=== PATIENT | male | born 1990 | race Caucasian/White ===

== ENCOUNTER 2021-01-28 18:32 | Emergency (ER) | payer SELFPAY ==
[2021-01-28] MEDS ORDERED: DOXYCYCLINE 100 MG CAP PO ONE (19:06)
[2021-01-28] MEDS ORDERED: HYDROCODONE/APAP 10/325 TAB ONE (19:06)
[2021-01-28] MEDS ORDERED: TETANUS & DIPHTHERIA TOX,ADULT 0.5 ML VIAL ONE (19:06)
[2021-01-28] MEDS ORDERED: LIDOCAINE 1% MPF 30 ML VIAL ONE (19:06)
--- NOTE | 2021-01-28 19:13 | RAD REPORT ---
EXAM DESCRIPTION: RAD - Foot Left 3 View - 01/28/2021 6:56 pm CLINICAL HISTORY: Left Foot pain status post injury FINDINGS: No fracture or dislocation is seen. A fish hook is present within the plantar soft tissues
--- NOTE | 2021-01-28 19:37 | ER ---
Nurse's Notes [facility] Name: Michael Odom Age: 30 yrs Sex: Male : 1990 Arrival Date: 01/28/2021 Time: 18:34 Bed 7 Private MD: Diagnosis: Puncture wound with foreign body of foot Presentation: 01/28 18:40 Chief complaint: Patient states: was swimming in the ocean and felt something on the em left foot, fish hook noted to the lateral side of the left foot, tetanus is not UTD. Coronavirus screen: Client denies travel out of the [place] in the last 14 days. Ebola Screen: Patient negative for fever greater than or equal to 101.5 degrees Fahrenheit, and additional compatible Ebola Virus Disease symptoms Patient denies exposure to infectious person. Patient denies travel to an Ebola-affected area in the 21 days before illness onset. No symptoms or risks identified at this time. Initial Sepsis Screen: Does the patient meet any 2 criteria? HR > 90 bpm. No. Patient's initial sepsis screen is negative. Does the patient have a suspected source of infection? No. Patient's initial sepsis screen is negative. Risk Assessment: Do you want to hurt yourself or someone else? Patient reports no desire to harm self or others. Onset of symptoms was January 28, 2021. 18:40 Method Of Arrival: Wheelchair em 18:40 Acuity: WILBER 4 em Historical: - Allergies: 18:43 No Known Allergies; em - Home Meds: 18:43 None [Active]; em - PMHx: 18:43 None; em - PSHx: 18:43 Cholecystectomy; em - Immunization history:: Last tetanus immunization: unknown. - Social history:: Smoking status: Patient denies any tobacco usage or history of. Screenin:58 Abuse screen: Denies threats or abuse. Denies injuries from another. Nutritional jl7 screening: No deficits noted. Tuberculosis screening: No symptoms or risk factors identified. Fall Risk None identified. Assessment: 18:58 General: Appears in no apparent distress. uncomfortable, Behavior is calm, cooperative, jl7 appropriate for age. Pain: Complains of pain in lateral side of left foot Pain currently is 7 out of 10 on a pain scale. Neuro: Level of Consciousness is awake, alert, obeys commands, Oriented to person, place, time, situation. Cardiovascular: Patient's skin is warm and dry. Respiratory: Airway is patent Respiratory effort is even, unlabored, Respiratory pattern is regular, symmetrical. Derm: Skin is pink, warm \T\ dry. 19:55 Reassessment: Patient and/or family updated on plan of care and expected duration. Pain ea level reassessed. Patient is alert, oriented x 3, equal unlabored respirations, skin warm/dry/pink. Discharge instruction given to patient verbalized the understanding of instruction. Vital Signs: 18:40 BP 139 / 77; Pulse 126; Resp 20; Temp 98.4(O); Pulse Ox 99% on R/A; Weight 65.77 kg; em Height 5 ft. 4 in. (162.56 cm); Pain 7/10; 19:55 BP 120 / 78; Pulse 88; Resp 18; Pulse Ox 98% ; ea 18:40 Body Mass Index 24.89 (65.77 kg, 162.56 cm) em ED Course: 18:34 Patient arrived in ED. mr 18:38 Cleopatra Astudillo FNP-C is PHCP. kb 18:38 Rustam Fajardo MD is Attending Physician. kb 18:42 Triage completed. em 18:43 Arm band placed on. em 18:44 Jen Ponce RN is Primary Nurse. jl7 18:56 Foot Left 3 View XRAY In Process Unspecified. EDMS 18:58 Patient has correct armband on for positive identification. Bed in low position. Call jl7 light in reach. Side rails up X 1. Pulse ox on. NIBP on. 19:14 Primary Nurse role handed off by Jen Ponce, RN mw2 19:59 No provider procedures requiring assistance completed. Patient did not have IV access ea during this emergency room visit. Administered Medications: 18:50 Drug: [place] (HYDROcodone-acetaminophen) 10 mg-325 mg 1 tabs Route: PO; jl7 19:09 Follow up: Response: No adverse reaction ea 18:56 Drug: Tetanus-Diphtheria Toxoid Adult 0.5 ml {Physician Scribe: [employer]. Exp: jl7 02/08/2022. Lot #: [id number]. } Route: IM; Site: right deltoid; 19:09 Follow up: Response: No adverse reaction ea 18:57 Drug: Lidocaine (1 %) 1 vials {Note: administered by NP. Cleopatra} Volume: 20 ml; jl7 Route: Infiltration; 19:08 Drug: Doxycycline 100 mg Route: PO; ea Outcome: 19:36 Discharge ordered by . trixie 19:59 Discharged to home via wheelchair, with family. ea 19:59 Condition: stable 19:59 Discharge instructions given to patient, Instructed on discharge instructions, follow up and referral plans. medication usage, Demonstrated understanding of instructions, follow-up care, medications, Prescriptions given X 2. 20:05 Patient left the ED. ea Signatures: Dispatcher [employer] EDNJ Cleopatra Astudillo, ASSET LIABILITY ANALYST-C ASSET LIABILITY ANALYST-Ckb Lindsey Izaguirre Edgar, RN RN Jen Valencia RN RN jl7 Antunez, Elena, RN Jonn Rocha ea mw2
--- NOTE | 2021-01-28 19:38 | EDPHYS ---
Physician Documentation [facility] Name: Michael Odom Age: 30 yrs Sex: Male : 1990 Arrival Date: 01/28/2021 Time: 18:34 Bed 7 Private MD: ED Physician Rustam Fajardo HPI: 01/28 20:46 This 30 yrs old Male presents to ER via Wheelchair with complaints of Hook in kb Foot. 20:46 The patient or guardian reports the patient has a suspected foreign body, of the kb lateral left foot. The reported likely foreign body is a fishhook. Onset: The symptoms/episode began/occurred just prior to arrival. Current symptoms: foreign body sensation, pain, in the area of the foreign body. Treatment Prior to Arrival: none. The patient has not experienced similar symptoms in the past. The patient has not recently seen a physician. Pt reports he [place] the [place] and a hook went into his foot. . Historical: - Allergies: 18:43 No Known Allergies; em - Home Meds: 18:43 None [Active]; em - PMHx: 18:43 None; em - PSHx: 18:43 Cholecystectomy; em - Immunization history:: Last tetanus immunization: unknown. - Social history:: Smoking status: Patient denies any tobacco usage or history of. ROS: 20:45 Constitutional: Negative for fever, chills, and weight loss. kb 20:45 Skin: Positive for puncture, of the lateral side of left foot. 20:45 All other systems are negative. Exam: 20:46 Constitutional: This is a well developed, well nourished patient who is awake, alert, kb and in no acute distress. 20:46 Skin: injury, puncture(s), that are superficial, of the lateral side of left foot, with hook. Vital Signs: 18:40 BP 139 / 77; Pulse 126; Resp 20; Temp 98.4(O); Pulse Ox 99% on R/A; Weight 65.77 kg; em Height 5 ft. 4 in. (162.56 cm); Pain 7/10; 19:55 BP 120 / 78; Pulse 88; Resp 18; Pulse Ox 98% ; ea 18:40 Body Mass Index 24.89 (65.77 kg, 162.56 cm) em Procedures: 20:44 Foreign Body Removal: a fishhook, from the lateral side of left foot, by using a kb hemostat, The patient tolerated the removal well, 7ml of 1% lidocaine injected around hook before removal. MDM: 18:40 Patient medically screened. kb 20:43 Data reviewed: vital signs, nurses notes. Data interpreted: Pulse oximetry: on room air kb is 98 %. Interpretation: normal. Counseling: I had a detailed discussion with the patient and/or guardian regarding: the historical points, exam findings, and any diagnostic results supporting the discharge/admit diagnosis, radiology results, the need for outpatient follow up, a family practitioner, to return to the emergency department if symptoms worsen or persist or if there are any questions or concerns that arise at home. 01/28 18:40 Order name: Foot Left 3 View XRAY; Complete Time: 19:25 kb Administered Medications: 18:50 Drug: [place] (HYDROcodone-acetaminophen) 10 mg-325 mg 1 tabs Route: PO; jl7 19:09 Follow up: Response: No adverse reaction ea 18:56 Drug: Tetanus-Diphtheria Toxoid Adult 0.5 ml {Skidder Operator: [employer]. Exp: jl7 02/08/2022. Lot #: [id number]. } Route: IM; Site: right deltoid; 19:09 Follow up: Response: No adverse reaction ea 18:57 Drug: Lidocaine (1 %) 1 vials {Note: administered by DAWNA Whelan.} Volume: 20 ml; jl7 Route: Infiltration; 19:08 Drug: Doxycycline 100 mg Route: PO; ea Disposition: 01/29 08:38 Co-signature as Attending Physician, Rustam Fajardo MD I agree with the assessment and kdr plan of care. Disposition: 01/28/21 19:36 Discharged to Home. Impression: Puncture wound with foreign body of foot. - Condition is Stable. - Discharge Instructions: Puncture Wound, [id number]. - Prescriptions for Tylenol- Codeine #3 300-30 mg Oral Tablet - take 1 tablet by ORAL route every 4-6 hours As needed; 10 tablet. Doxycycline Hyclate 100 mg Oral Tablet - take 1 tablet by ORAL route every 12 hours for 7 days; 14 tablet. - Medication Reconciliation Form, Thank You Letter, Antibiotic Education, Prescription Opioid Use form. - Follow up: Emergency Department; When: As needed; Reason: Worsening of condition. Follow up: Private Physician; When: 2 - 3 days; Reason: Recheck today's complaints, Continuance of care, Re-evaluation by your physician. Signatures: Dispatcher [employer] Cleopatra Kleni, BUNDLE WRAPPER-C BUNDLE WRAPPER-Rustam Priest MD MD kdr Munoz, Edgar, RN RN Jen Valencia RN RN jl7 Ginna Snow RN RN ea Corrections: (The following items were deleted from the chart) 01/28 20:05 19:36 01/28/2021 19:36 Discharged to Home. Impression: Puncture wound with foreign body ea of foot. Condition is Stable. Forms are Medication Reconciliation Form, Thank You Letter, Antibiotic Education, Prescription Opioid Use. Follow up: Emergency Department; When: As needed; Reason: Worsening of condition. Follow up: Private Physician; When: 2 - 3 days; Reason: Recheck today's complaints, Continuance of care, Re-evaluation by your physician. kb
[2021-01-28 21:46] VITALS: TEMP 98.4
[2021-01-28 21:48] VITALS: BP 120/78; O2SAT 98
== END 2021-01-28 20:05 | disposition home or self-care (01) ==
LOC: ER 18:32
DX: S91.342A Puncture wound with foreign body, left foot, initial encounter (principal); W26.8XXA Contact with other sharp object(s), not elsewhere classified, initial encounter; W45.8XXA Other foreign body or object entering through skin, initial encounter; Z23 Encounter for immunization
CPT/HCPCS: 90471; 90714; 99284

== ENCOUNTER 2021-03-31 22:07 | Emergency (ER) | payer SELFPAY ==
[2021-03-31 23:17] LABS: Absolute Lymphocytes (CBC) 2.3 K/uL (0.7-4.9); Basophils % 0.5 % (0-1.3); Hematocrit 37.9 % (39.6-49.0); Lymphocytes % 30.7 % (15.3-44.8); MPV 7.6 fL (7.6-11.3); RBC Red Blood Cell Count 4.01 M/uL (4.33-5.43)
[2021-03-31 23:18] LABS: Protime INR 1.03
[2021-03-31 23:34] LABS: ALT/SGPT 40 U/L (12-78); AST/SGOT 37 U/L (15-37); Albumin 4.3 g/dL (3.4-5.0); Alkaline Phosphatase 45 U/L (45-117); BUN Blood Urea Nitrogen 12 mg/dL (7-18); Bicarbonate 28 mmol/L (21-32); Bilirubin Direct < 0.1 mg/dL (0-0.2); Bilirubin Total 0.4 mg/dL (0.2-1.0); Glucose Level 83 mg/dL (74-106); Magnesium 2.2 mg/dL (1.8-2.4); NT PRO-BNP 16 pg/mL (<125); Potassium 3.7 mmol/L (3.5-5.1); Protein, Total 7.8 g/dL (6.4-8.2); Sodium Level 140 mmol/L (136-145); Troponin (Emerg Dept Use Only) < 0.02 ng/mL (0.0-0.045)
--- NOTE | 2021-04-01 | EDPHYS ---
Physician Documentation [facility] Name: Michael Odom Age: 30 yrs Sex: Male : 1990 Arrival Date: 03/31/2021 Time: 22:09 Bed 28 Private MD: ED Physician Mathew Springer HPI: 03/31 23:30 This 30 yrs old Male presents to ER via Ambulatory with complaints of Chest ma2 Pain, Doesn't Feel Right. 23:30 The patient or guardian reports chest pain that is located primarily in the anterior ma2 chest wall, chest diffusely, anterior aspect of right upper chest and anterior aspect of left upper chest. Associated signs and symptoms: Pertinent negatives: diaphoresis, lower extremity pain, lightheadedness, near syncope. Severity of pain: At its worst the pain was mild in the emergency department the pain is unchanged. The patient has experienced similar episodes in the past. Yesterday 30-year-old male who smokes cigarettes, and smokes marijuana here with chest wall pain that is worse with deep breath and coughing, started last night and has been constant worse with palpation or moving, he has had this chest pain many times, and had negative work-up done with times in the past, he does not have any health issues other than chronic chest pain. He stated that chest pain started after he smoked marijuana last night.. Historical: - Allergies: 22:44 No Known Allergies; kg - Home Meds: 22:44 None [Active]; kg - PMHx: 22:44 None; kg - PSHx: 22:44 None; kg - Immunization history:: Adult Immunizations not up to date, Client reports having NOT received the Covid vaccine. - Social history:: Smoking status: Patient reports the use of cigarette tobacco products, smokes one pack cigarettes per day. Patient uses alcohol, on a daily basis. street drugs, marijuana. - Family history:: not pertinent. ROS: 23:30 Constitutional: Negative for fever, chills, and weight loss. ma2 23:30 All other systems are negative. Exam: 23:30 Constitutional: This is a well developed, well nourished patient who is awake, alert, ma2 and in no acute distress. Head/Face: Normocephalic, atraumatic. Eyes: Pupils equal round and reactive to light, extra-ocular motions intact. Lids and lashes normal. Conjunctiva and sclera are non-icteric and not injected. Cornea within normal limits. Periorbital areas with no swelling, redness, or edema. ENT: Nares patent. No nasal discharge, no septal abnormalities noted. Tympanic membranes are normal and external auditory canals are clear. Oropharynx with no redness, swelling, or masses, exudates, or evidence of obstruction, uvula midline. Mucous membranes moist. Neck: Trachea midline, no thyromegaly or masses palpated, and no cervical lymphadenopathy. Supple, full range of motion without nuchal rigidity, or vertebral point tenderness. No Meningismus. Chest/axilla: Chest pain is reproducible on exam, diffuse lower anterior chest, skin is within normal limits normal chest wall appearance and motion. v. No lesions are appreciated. Cardiovascular: Regular rate and rhythm with a normal S1 and S2. No gallops, murmurs, or rubs. Normal PMI, no JVD. No pulse deficits. Respiratory: Lungs have equal breath sounds bilaterally, clear to auscultation and percussion. No rales, rhonchi or wheezes noted. No increased work of breathing, no retractions or nasal flaring. Abdomen/GI: Soft, non-tender, with normal bowel sounds. No distension or tympany. No guarding or rebound. No evidence of tenderness throughout. Skin: Warm, dry with normal turgor. Normal color with no rashes, no lesions, and no evidence of cellulitis. MS/ Extremity: Pulses equal, no cyanosis. Neurovascular intact. Full, normal range of motion. Neuro: Awake and alert, GCS 15, oriented to person, place, time, and situation. Cranial nerves II-XII grossly intact. Motor strength 5/5 in all extremities. Sensory grossly intact. Cerebellar exam normal. Normal gait. 23:30 Chest/axilla: Normal chest wall appearance and motion. Nontender with no deformity. ma2 No lesions are appreciated. Vital Signs: 22:40 BP 139 / 76; Pulse 101; Resp 20; Temp 98.6; Pulse Ox 100% on R/A; Weight 67.77 kg (M); kg Height 5 ft. 5 in. (165.10 cm); Pain 4/10; 04/01 00:16 BP 123 / 78; Pulse 77; Resp 16; Temp 98.6; Pulse Ox 100% ; Pain 4/10; bs2 03/31 22:40 Body Mass Index 24.86 (67.77 kg, 165.10 cm) kg MDM: 03/31 22:58 Patient medically screened. [facility] 23:30 Differential diagnosis: esophagitis, gastritis, gastroesophageal reflux disease (GERD), ma2 pericarditis. 23:58 Data reviewed: vital signs, nurses notes. Counseling: I had a detailed discussion with [facility] the patient and/or guardian regarding: the historical points, exam findings, and any diagnostic results supporting the discharge/admit diagnosis, the presence of at least one elevated blood pressure reading (>120/80) during this emergency department visit, the need for outpatient follow up. ED course: Work-up is unremarkable, negative troponin, chest wall pain has been constant for 2 days, reproducible on exam, MARK score and heart score are not applicable. I offered pain medication in the ER and prescription however patient declined. 03/31 22:38 Order name: Basic Metabolic Panel [facility] 03/31 22:38 Order name: CBC with Diff [facility] 03/31 22:38 Order name: LFT's [facility] 03/31 22:38 Order name: Magnesium [facility] 03/31 22:38 Order name: NT PRO-BNP; Complete Time: 23:41 [facility] 03/31 22:38 Order name: PT-INR; Complete Time: 23:32 [facility] 03/31 22:38 Order name: Troponin (emerg Dept Use Only); Complete Time: 23:41 [facility] 03/31 22:38 Order name: XRAY Chest (1 view) [facility] 03/31 22:38 Order name: EKG; Complete Time: 22:39 [facility] 03/31 22:39 Order name: Basic Metabolic Panel; Complete Time: 23:41 [facility] 03/31 22:39 Order name: CBC with Automated Diff; Complete Time: 23:32 [facility] 03/31 22:39 Order name: Liver (Hepatic) Function; Complete Time: 23:41 [facility] 03/31 22:39 Order name: Magnesium; Complete Time: 23:41 [facility] 03/31 22:38 Order name: Cardiac monitoring; Complete Time: 23:12 [facility] 03/31 22:38 Order name: EKG - Nurse/Tech; Complete Time: 22:46 [facility] 03/31 22:38 Order name: IV Saline Lock; Complete Time: 23:13 wv2 03/31 22:38 Order name: Labs collected and sent; Complete Time: 23:13 w[facility]2 03/31 22:38 Order name: O2 Per Protocol; Complete Time: 23:13 wv2 03/31 22:38 Order name: O2 Sat Monitoring; Complete Time: 23:13 ma2 Administered Medications: 04/01 00:15 Drug: Ketorolac 30 mg Route: IVP; Site: left antecubital; bs2 00:15 Follow up: Response: No adverse reaction bs2 Disposition Summary: 03/31/21 23:59 Discharge Ordered Location: Home ma2 Condition: Stable ma2 Diagnosis - Chest pain on breathing ma2 Followup: ma2 - With: Private Physician - When: Tomorrow - Reason: Continuance of care Discharge Instructions: - Discharge Summary Sheet ma2 - Nonspecific Chest Pain, Adult, [id number] ma2 Forms: - Medication Reconciliation Form ma2 - Thank You Letter ma2 - Antibiotic Education ma2 - Prescription Opioid Use ma2 Signatures: Dispatcher [employer] EDMS Mathew Springer MD MD ma2 Loree Conley RN RN kg Flora Franks RN RN bs2 Corrections: (The following items were deleted from the chart) 03/31 23:32 23:30 Constitutional: This is a well developed, well nourished patient who is awake, ma2 alert, and in no acute distress. Head/Face: Normocephalic, atraumatic. Eyes: Pupils equal round and reactive to light, extra-ocular motions intact. Lids and lashes normal. Conjunctiva and sclera are non-icteric and not injected. Cornea within normal limits. Periorbital areas with no swelling, redness, or edema. ENT: Nares patent. No nasal discharge, no septal abnormalities noted. Tympanic membranes are normal and external auditory canals are clear. Oropharynx with no redness, swelling, or masses, exudates, or evidence of obstruction, uvula midline. Mucous membranes moist. Neck: Trachea midline, no thyromegaly or masses palpated, and no cervical lymphadenopathy. Supple, full range of motion without nuchal rigidity, or vertebral point tenderness. No Meningismus. Chest/axilla: Normal chest wall appearance and motion. Nontender with no deformity. No lesions are appreciated. Cardiovascular: Regular rate and rhythm with a normal S1 and S2. No gallops, murmurs, or rubs. Normal PMI, no JVD. No pulse deficits. Respiratory: Lungs have equal breath sounds bilaterally, clear to auscultation and percussion. No rales, rhonchi or wheezes noted. No increased work of breathing, no retractions or nasal flaring. Abdomen/GI: Soft, non-tender, with normal bowel sounds. No distension or tympany. No guarding or rebound. No evidence of tenderness throughout. Skin: Warm, dry with normal turgor. Normal color with no rashes, no lesions, and no evidence of cellulitis. MS/ Extremity: Pulses equal, no cyanosis. Neurovascular intact. Full, normal range of motion. Neuro: Awake and alert, GCS 15, oriented to person, place, time, and situation. Cranial nerves II-XII grossly intact. Motor strength 5/5 in all extremities. Sensory grossly intact. Cerebellar exam normal. Normal gait. ma2
--- NOTE | 2021-04-01 | ER ---
Nurse's Notes [facility] Name: Michael Odom Age: 30 yrs Sex: Male : 1990 Arrival Date: 03/31/2021 Time: 22:09 Bed 28 Private MD: Diagnosis: Chest pain on breathing Presentation: 03/31 22:40 Chief complaint: Patient states: Chest pressure starting at 2000. Pt just got done kg eating and started having chest pressure and tingling in arms larisa. 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 Pt also stated he smoked weed and had one beer three hours before the episode. Coronavirus screen: Client denies travel out of the [place] in the last 14 days. At this time, unable to obtain information related to travel outside the [place] At this time, the client does not indicate any symptoms associated with coronavirus-19. Ebola Screen: Patient negative for fever greater than or equal to 101.5 degrees Fahrenheit, and additional compatible Ebola Virus Disease symptoms Patient denies exposure to infectious person. Patient denies travel to an Ebola-affected area in the 21 days before illness onset. Initial Sepsis Screen: Does the patient meet any 2 criteria? No. Patient's initial sepsis screen is negative. Does the patient have a suspected source of infection? No. Patient's initial sepsis screen is negative. Risk Assessment: Do you want to hurt yourself or someone else? Patient reports no desire to harm self or others. Onset of symptoms was March 31, 2021 at 20:00. 22:40 Method Of Arrival: Ambulatory kg 22:40 Acuity: WILBER 3 kg Triage Assessment: 22:44 General: Appears in no apparent distress. Behavior is calm, cooperative, appropriate kg for age, quiet. Pain: Complains of pain in chest. EENT: No deficits noted. Neuro: No deficits noted. Cardiovascular: Reports chest pain, tingling BUE. Historical: - Allergies: 22:44 No Known Allergies; kg - Home Meds: 22:44 None [Active]; kg - PMHx: 22:44 None; kg - PSHx: 22:44 None; kg - Immunization history:: Adult Immunizations not up to date, Client reports having NOT received the Covid vaccine. - Social history:: Smoking status: Patient reports the use of cigarette tobacco products, smokes one pack cigarettes per day. Patient uses alcohol, on a daily basis. street drugs, marijuana. - Family history:: not pertinent. Screenin:45 Abuse screen: Denies threats or abuse. Denies injuries from another. Abuse screen: kg Denies threats or abuse. Nutritional screening: No deficits noted. Tuberculosis screening: No symptoms or risk factors identified. Fall Risk None identified. Assessment: 22:46 Pain: Pain began 3 hours ago. kg 23:00 General: Appears in no apparent distress. uncomfortable, slender, well groomed, well bs2 developed, well nourished, Behavior is calm, cooperative, appropriate for age. Pain: Complains of pain in chest Pain does not radiate. Neuro: No deficits noted. Cardiovascular: Reports chest pain, shortness of breath. Respiratory: No deficits noted. GI: No signs and/or symptoms were reported involving the gastrointestinal system. : No signs and/or symptoms were reported regarding the genitourinary system. EENT: No signs and/or symptoms were reported regarding the EENT system. Vital Signs: 22:40 BP 139 / 76; Pulse 101; Resp 20; Temp 98.6; Pulse Ox 100% on R/A; Weight 67.77 kg (M); kg Height 5 ft. 5 in. (165.10 cm); Pain 4/10; 04/01 00:16 BP 123 / 78; Pulse 77; Resp 16; Temp 98.6; Pulse Ox 100% ; Pain 4/10; bs2 03/31 22:40 Body Mass Index 24.86 (67.77 kg, 165.10 cm) kg ED Course: 03/31 22:09 Patient arrived in ED. cf2 22:44 Triage completed. kg 22:44 Arm band placed on right wrist. kg 22:45 Patient has correct armband on for positive identification. kg 22:46 Patient maintains SpO2 saturation greater than 95% on room air. kg 22:53 Flora Franks, JAYE is Primary Nurse. bs2 22:58 Mathew Springer MD is Attending Physician. ma2 23:00 volunteer fire fighter on. Pulse ox on. NIBP on. Door closed. Noise minimized. Warm blanket bs2 given. 23:11 Inserted saline lock: 20 gauge in left antecubital area, using aseptic technique. Blood dh4 collected. 23:18 XRAY Chest (1 view) In Process Unspecified. EDMS 04/01 00:15 Basic Metabolic Panel Sent. bs2 00:15 CBC with Diff Sent. bs2 00:15 LFT's Sent. bs2 00:15 Magnesium Sent. bs2 00:23 No provider procedures requiring assistance completed. IV discontinued, intact, bs2 bleeding controlled, No redness/swelling at site. Administered Medications: 00:15 Drug: Ketorolac 30 mg Route: IVP; Site: left antecubital; bs2 00:15 Follow up: Response: No adverse reaction bs2 Outcome: 03/31 23:59 Discharge ordered by . ma2 04/01 00:23 Discharged to home ambulatory, with family. bs2 Condition: improved Discharge instructions given to patient, family, Instructed on discharge instructions, follow up and referral plans. Demonstrated understanding of instructions, follow-up care. 00:25 Patient left the ED. bs2 Signatures: Dispatcher [employer] EDMS Mathew Springer MD MD ma2 Beatriz Lundberg 2 Alfred Riggins dh4 Loree Conley, RN RN Flora Bryan RN RN bs2
[2021-04-01] MEDS ORDERED: KETOROLAC 30 MG/ML INJ ONE (00:34)
--- NOTE | 2021-04-01 08:24 | RAD REPORT ---
EXAM DESCRIPTION: RAD - Chest Single View - 03/31/2021 11:18 pm CLINICAL HISTORY: CHEST PAIN Chest pain. COMPARISON: ABDOMEN ACUTE SERIES dated 07/18/2012 FINDINGS: Portable technique limits examination quality. The lungs are grossly clear. The heart is normal in size. No displaced fractures. IMPRESSION: No acute intrathoracic process suspected.
[2021-04-02 05:14] VITALS: TEMP 98.6; O2SAT 100
[2021-04-02 05:16] VITALS: BP 123/78
--- NOTE | 2021-04-02 07:32 | EKG ---
Test Date: 2021-03-31 Test Time: 22:30:41 Fly Maker: SHABBIR MEASUREMENT RESULTS: Intervals: Rate: 89 IL: 160 QRSD: 80 QT: 342 QTc: 416 Switchback: P: 81 IL: 160 QRS: 255 T: 29 INTERPRETIVE STATEMENTS: Normal sinus rhythm with sinus arrhythmia Possible Left atrial enlargement Right superior axis deviation Pulmonary disease pattern RSR' or QR pattern in V1 suggests right ventricular conduction delay Abnormal ECG Compared to ECG 03/31/2021 22:30:02 No significant changes Electronically Signed On 04-02-21 07:28:47 CDT by Edmar Chicas
--- NOTE | 2021-04-02 07:33 | EKG ---
Test Date: 2021-03-31 Test Time: 22:30:02 Color Paste Mixer: SHABBIR MEASUREMENT RESULTS: Intervals: Rate: 90 WA: 156 QRSD: 80 QT: 338 QTc: 413 [place]: P: 80 WA: 156 QRS: 259 T: 29 INTERPRETIVE STATEMENTS: Sinus rhythm with marked sinus arrhythmia Possible Left atrial enlargement Right superior axis deviation Pulmonary disease pattern RSR' or QR pattern in V1 suggests right ventricular conduction delay Abnormal ECG Compared to ECG 06/10/2005 10:24:00 Right superior axis now present RSR' in V1 or V2 now present Left-axis deviation no longer present Electronically Signed On 04-02-21 07:28:47 CDT by Edmar Chicas
== END 2021-04-01 00:25 | disposition home or self-care (01) ==
LOC: ER 22:07
DX: R07.1 Chest pain on breathing (principal); F17.210 Nicotine dependence, cigarettes, uncomplicated
CPT/HCPCS: 36415; 71045; 80048; 80076; 83735; 83880; 84484; 85025; 85610; 93005; 96374; 99285

== ENCOUNTER 2023-02-03 14:24 | Emergency (ER) | payer SELFPAY ==
--- OUTSIDE RECORDS SUMMARY | 2023-02-03 14:28 | XMS REPORT | Continuity of Care Document ---
:1990 Author Organization [facility] t Address [address] [place] [address] [place] [id number] Care Team Providers Name Role Phone PCP, PATIENT DOES NOT HAVE A Primary Care Physician Unavaila SRINIVASAN Barrera Attending Clinician Unavailable Srinivasan Duffy DO Attending Clinician Yara Barrientos MD Attending Clinician YARA BARRIENTOS Attending Clinician Unavailable SRINIVASAN DUFFY Admitting Clinician Unavailable YARA BARRIENTOS Admitting Clinician Unavailable Payers Payer Name Policy Type Policy Number Effective Date Expiration Date Jonathan VIZCARRA [id number] 2014 HEALTH 00:00:00 Problems Condition Condition Condition Status Onset Resolution Last Treating Co mments Source Name Details Category Date Date Treatment Clinician Date Abdominal Abdominal Disease Active 2006-09 Uni vers pain, pain, 1-08 ity of right right 00:00: [place] lower lower 00 Medical quadrant quadrant Branch Abdominal Abdominal Disease Active 2006-09 Uni vers pain, pain, 1-08 ity of right right 00:00: [facility] upper Medical quadrant quadrant Branch Abdominal Abdominal Disease Active 2006-09 Uni vers pain, pain, 0-18 [place] epig[place]ig[place] Dizziness Dizziness Disease Active 2006-09 Uni vers and and 0-18 ity of [place] Headache Headache Disease Active 2006-09 Overview: Un yanna 0-18 Formattin ity of 00:00: g of this [place] 00 note Medical might be Branch different from the original. ICD10 Diagnosis Term Merchandise Distributor Utility Nausea Nausea Disease Active 2006-09 Overview: Univer s without without 0-18 Formattin ity o f vomiting vomiting 00:00: g of this [place] 00 note Medical might be Branch different from the original. ICD10 Diagnosis Term Merchandise Distributor Utility Allergies, Adverse Reactions, Alerts Allergy Allergy Status Severity Reaction(s) Onset Inactive Treating Comm ents Source Name Type Date Date Clinician NO KNOWN Drug Active Univers ALLERGIE Class ity of S [facility] Social History Social Habit Start Date Stop Date Quantity Comments Source History of tobacco Passive smoker Un iversity of use [facility] History [facility] University o f Alcohol Frequency [facility] edical Branch History SDPA University o f Alcohol Std Drinks [facility] History [facility] University o f Alcohol Binge [place] [facility] al Branch Exposure to 2022-10-29 2022-11-08 Not sure University SARS-CoV-2 (event) 00:00:00 16:41:00 [facility] Alcohol intake 2022-03-16 2022-03-16 Current drinker Unive rsity of 00:00:00 00:00:00 of alcohol [facility] (finding) [place] Alcohol Comment 2007-07-13 2007-07-13 tasted alcohol Unive rsity of 00:00:00 00:00:00 [facility] Tobacco Comment 2007-07-13 2007-07-13 parents smoke in Uni versity of 00:00:00 00:00:00 house [facility] Cigarettes smoked 2007-07-13 2007-07-13 Univers ity of current (pack per 00:00:00 00:00:00 [facility] ) - Reported Branch Cigarette 2007-07-13 2007-07-13 University of pack-years 00:00:00 00:00:00 [facility] Sex Ass[birth year] At [birth year] Universit y of 00:00:00 00:00:00 [facility] Smoking Status Start Date Stop Date Source Never smoked tobacco [facility] Medications Ordered Filled Start Stop Current Ordering Indication Dosage Frequency Signature Comments Components Source Medication Medication Date Date Medication? Clinician (SIG) Name Name HYDROcodone 2022- No 1{tbl} 1 tablet, Univers -acetaminop 3-07 03-07 Oral, ity of hen (NORCO) 01:45: 00:48 [place]CE[place] 1 [place] 10-325 mg 00 :00 dose, On Medica l tablet 1 Tue11/08/22 Branc h tablet at 1945, Routine iopamidol 2022- No [id number] 80mL 80 mL, Univers (ISOVUE 11-08 Intravenou ity o f 370-500 mL) 23:15: 23:37 s, ONCE, 1 [place] injection 00 :00 dose, On Medica l 80 mL Tue11/08/22 Branch at 1715, ELLI NaCl 0.9% 2022- No 1000mL at 999 Uni vers (NS) bolus 11-0807 mL/hr, ity of infusion 23:00: 00:43 1,000 mL, [place] 1,000 mL 00 :00 IV Medical Infusion, Branch ONCE, 1 dose, On Tue11/08/22 at 1700, STAT FENTanyl PF 2022- No 50ug 50 mcg, Un yanna (SUBLIMAZE 11-08 Slow IV ity o f (PF)) 23:00: 23:24 Push, [place] injection 00 :00 ONCE, 1 Medical 50 mcg dose, On Branch Tue11/08/22 at 1700, Routine naproxen Yes [id number] 550mg Take 1 Univers sodium 550 11-08 tablet by ity of mg tablet 00:00: mouth [facility] the Medical morning Branch and 1 tablet in the evening. Take with meals. methylPREDN Yes [id number] Take by Univers ISolone 4 11-08 9102 mouth ity of mg tablets 00:00: SEE-INSTRU [place] 00 CTIONS. Medical follow Branch package directions methocarbam 2022- Yes [id number] 500mg Take 1 Univers oL 500 mg 11-08 9102 tablet by ity of tablet 00:00: 05:59 mouth in [place] 00 :00 the Medical morning Branch and 1 tablet at noon and 1 tablet in the evening. Do all this for 5 days. iopamidol 2021- No [id number] 120mL 120 mL, Univers (ISOVUE 12-03 Intravenou ity o f 370-500 mL) 11:00: 09:43 s, ONCE, 1 [place] injection 00 :00 dose, On Medica l 120 mL [place] Branch 12/03/21 at 0600, Routine morpHINE 2021- No 4mg 4 mg, Slow Un yanna injection 4 12-03 IV Push, ity of mg 10:45: 09:53 ONCE, 1 [place] 00 :00 dose, On Medical [place] Branch 12/03/21 at 0545, STAT ondansetron 2021- No 4mg 4 mg, Slow Univers (ZOFRAN 12-03 IV Push, ity of (PF)) 09:45: 08:38 ONCE, 1 [place] injection 4 00 :00 dose, On Medi lenora mg [place] Branch 12/03/21 at 0445, ELLI NaCl 0.9% No 1000mL at 999 Uni vers (NS) IV 12-03 mL/hr, IV ity of infusion 09:45: 10:00 Infusion, [place] 1,000 mL 00 :00 ONCE, 1 Medical dose, On Branch Antonette 12/03/21 at 0445, Routine morpHINE No 4mg 4 mg, Slow Un yanna injection 4 12-03 IV Push, ity of mg 09:45: 08:38 ONCE, 1 00 :00 dose, On Medical [place] Branch 12/03/21 at 0445, STAT ondansetron 0 Yes [id number] 4mg Take 1 Univers (ZOFRAN) 4 -31 tablet by ity of mg tablet 00:00: mouth [place] 00 every 8 Medical (eight) Branch hours as needed for Nausea and Vomiting (N/V). ondansetron 0 Yes [id number] 4mg Take 1 Univers (ZOFRAN) 4 3-31 tablet by ity of mg tablet 00:00: mouth [place] 00 every 8 Medical (eight) Branch hours as needed for Nausea and Vomiting (N/V). HYDROcodone 2021- No 4647 1{tbl} Take 1 U nivers -acetaminop 12-03-08 tablet by it y of hen (NORCO) 00:00: 04:59 [place] 10-325 mg 00 :00 every 6 Medical tablet (six) Branch hours as needed for Pain (scale 7-10) for up to 7 days. Indication s: acute pain OMEPRAZOLE 2006-09 Yes None Univers 20 MG ORAL 1-06 Entered ity of CPDR 21:04: [address] OMEPRAZOLE 2006-09 Yes None Univers 20 MG ORAL 1-06 Entered ity of CPDR 21:04: [address] Vital Signs Vital Name Observation Time Observation Value Comments Source Systolic blood 2022-11-09 01:00:00 123 mm[Hg] Univer sity of pressure [facility] Diastolic blood 2022-11-09 01:00:00 66 mm[Hg] Unive rsity of [facility] Heart rate 2022-11-09 01:00:00 72 /min Universi ty of [facility] Body temperature 2022-11-09 01:00:00 36.67 Nadeen Univ ersity of [facility] Branch Respiratory rate 2022-11-09 01:00:00 13 /min Univ ersity of [place] [facility] Oxygen saturation in 2022-11-09 01:00:00 98 /min University of Arterial blood by [place] Solaiemes lenora Pulse oximetry Branch Body height 2022-11-08 22:45:00 175.3 cm Universi ty of [place] [facility] [place] Body weight 2022-11-08 22:45:00 74.254 kg Universi ty of [place] [facility] BMI 2022-11-08 22:45:00 24.17 kg/m2 Universi ty of [place] [facility] [place] Systolic blood 2021-12-03 09:30:00 126 mm[Hg] Univer sity of [facility] Diastolic blood 2021-12-03 09:30:00 86 mm[Hg] Unive rsity of [facility] Heart rate 2021-12-03 09:30:00 70 /min Universi ty of [place] [facility] Respiratory rate 2021-12-03 09:30:00 14 /min Univ ersity of [facility] Branch Oxygen saturation in 2021-12-03 09:30:00 100 /min University of Arterial blood by [place] [employer] Pulse oximetry Branch Body temperature 2021-12-03 08:41:55 35.44 Nadeen Univ ersity of [place] [facility] Body height 2021-12-03 08:28:00 165.1 cm Universi ty of [place] [facility] Body weight 2021-12-03 08:28:00 72.576 [facility] BMI 2021-12-03 08:28:00 26.63 kg/m2 [facility] Procedures Procedure Date / Time Performed Performing Clinician Sour e CT TRAUMA THORAX W 2022-11-08 23:21:00 Singer [facility] CONTRAST [facility] Branch CT TRAUMA ABDOMEN 2022-11-08 23:21:00 Singer [facility] PELVIS W [facility] COMP. METABOLIC PANEL 2022-11-08 23:17:00 Srinivasan Duffy [facility] ([id number]) Medical Branch ETHANOL 2022-11-08 23:17:00 Singer [facility] CBC WITH DIFF 2022-11-08 23:17:00 Singer [facility] CT TRAUMA HEAD WO 2022-11-08 23:14:11 Singer [facility] CONTRAST [facility] CT TRAUMA CERVICAL 2022-11-08 23:14:11 Singer [facility] SPINE WO [facility] CONSENT/REFUSAL FOR 2022-11-08 22:39:59 Doctor Unassigned, No Un [facility] DIAGNOSIS AND Name Medical Branch TREATMENT CT ABDOMEN PELVIS W 2021-12-03 09:45:09 Yara Barrientos [facility] CONTRAST [facility] CBC WITH DIFF 2021-12-03 08:33:[address] [facility] URINALYSIS 2021-12-03 08:33:[address] [facility] AMYLASE 2021-12-03 08:32:[address] [facility] LIPASE 2021-12-03 08:32:[address] [facility] HEPATIC FUNCTION PANEL 2021-12-03 08:32:00 Yara Barrientos [facility] ([id number]) [facility] (ALB,T.PRO,BILI T,BU/BC,ALT,AST,ALK PHOS) COMP. METABOLIC PANEL 2021-12-03 08:32:00 Yara Barrientos [facility] ([id number]) Medical Branch NOTICE OF PRIVACY 2021-12-03 08:19:40 Doctor [facility], [facility] Branch CONSENT/REFUSAL FOR 2021-12-03 08:19:20 Doctor [facility], [facility] Name [facility] TREATMENT Encounters Start End Encounter Admission Attending Care Care Encounter Source Date/Time Date/Time Type Type Clinicians Facility Department ID 2022-11-08 2022-11-08 Emergency X [facility] ERT [id number] Univers 16:47:00 19:25:00 SRINIVASAN ramos [facility] 2022-11-08 2022-11-08 [facility] [id number] Univers 16:47:00 19:25:00 Srinivasan GARCIA [id number] i [facility] [id number] [facility] [id number] [address] 2021-12-03 2021-12-03 [facility] [id number] Univers 03:29:00 05:22:[facility] [id number] ity [facility] [id number] [facility] [id number] [address] 2021-12-03 2021-12-03 Emergency [facility] [id number] Univers 03:29:00 [facility]:22[facility] Results Test Description Test Time Test Comments Results Result Sour e Comments ETHANOL 2022-11-09 ALCOHOL<10mg/dL0 Universi ty of 00:17:25 11/08/2022 6:17 [facility]10 Repqidkc11-272 Toxic>100 Depression of ANIMAL DAYCARE PROVIDER>400 Fatalities Reported COMP. METABOLIC PANEL (60805) 2022-11-09 00:12:11 Test Item Value Reference Range Interpretation Comme nts NA (test code = 6064710729) 135 mmol/L 135-145 K (test code = 5423531219) 4.1 mmol/L 3.5-5.0 CL (test code = 6732725890) 98 mmol/L 98-108 CO2 TOTAL (test code = 3923098377) 28 mmol/L 23-31 AGAP (test code = 5623445846) 9 2-16 BUN (test code = 5458405623) 12 mg/dL 7-23 GLUCOSE (test code = 6684715278) 115 mg/dL 70-110 H CREATININE (test code = 0.85 mg/dL 0.60-1.25 3880702459) TOTAL BILI (test code = 0.7 mg/dL 0.1-1.6 7178253467) CALCIUM (test code = 5605828758) 9.1 mg/dL 8.6-10.6 T PROTEIN (test code = 0309570751) 8.1 g/dL 6.3-8.2 ALBUMIN (test code = 5815897430) 4.8 g/dL 3.5-5.0 ALK PHOS (test code = 7898758711) 49 U/L 34-122 ALTv (test code = 1742-6) 37 U/L 5-50 AST(SGOT) (test code = 1081833334) 43 U/L 13-40 H eGFR (test code = 9820563289) 105.8 mL/min/1.73m2 GIGI (test code = GIGI) Association of Glomerular Filtration Rate (GFR) and Staging of Kidney Disease* + +-------- + ------+| GFR (mL/min/1.73 m2) ?| With Kidney Damage ?| ?Without Kidney Damage+ +-- + +| ?>90 ?| ?Stage one ?| ? Normal ?+ +------- + -------+| ?60-89 ?| ?Stage two ?| ? Decreased GFR ? + +-------- + ------+| ?30-59 ?| ?Stage three ?| ? Stage three ? + +-------- + ------+| ?15-29 ?| ?Stage four ? | ? Stage four ?+ +------- + -------+| ?<15 (or dialysis) ? ?| ?Stage five ? | ? Stage five ?+ +------- + -------+ *Each stage assumes the associated GFR level has been in effect for at least three months. ?Stages 1 to 5, with or without kidney disease, indicate chronic kidney disease. Notes: Determination of stages one and two (with eGFR >59mL/min/1.73 m2) requires estimation of kidney damage for at least three months as defined by structural or functional abnormalities of the kidney, manifested by either:Pathological abnormalities or Markers of kidney damage (including abnormalities in the composition of the blood or urine or abnormalities in imaging tests). Lab Interpretation (test code = Abnormal 83744-4) [facility] WITH [id number] 23:59:05 Test Item Value Reference Range Interpretation Comments WBC (test code = 10.02 See_Comment [Automated 2290-2) message] The sy stem which generated this result transmitted reference range : 4.20 - 10.70 10*3/?L. The reference range was not used to interpret this result as normal/abnormal . RBC (test code = 4.47 See_Comment [Automated 789-8) message] The sy stem which generated this result transmitted reference range : 4.26 - 5.52 10*6/?L. The reference range was not used to interpret this result as normal/abnormal . HGB (test code = 14.6 g/dL 12.2-16.4 718-7) HCT (test code = 42.5 % 38.4-49.3 4544-3) MCV (test code = 95.1 fL 81.7-95.6 787-2) MCH (test code = 32.7 pg 26.1-32.7 785-6) MCHC (test code = 34.4 g/dL 31.2-35.0 786-4) RDW-SD (test code = 43.8 fL 38.5-51.6 00482-1) RDW-CV (test code = 12.5 % 12.1-15.4 788-0) PLT (test code = 231 See_Comment [Automated 777-3) message] The sy stem which generated this result transmitted reference range : 150 - 328 10*3/ ?L. The reference r teresa was not used to interpret this result as normal/abnormal . MPV (test code = 9.7 fL 9.8-13.0 L 83238-5) NRBC/100 WBC (test 0.0 See_Comment [Automat ed code = 0185519672) message] The system which generated this result transmitted reference range : 0.0 - 10.0 /100 WBCs. The refer ence range was not u sed to interpret th is result as normal/abnormal . NRBC x10^3 (test code See_Comment [Auto mated = 5746700133) message] The s ystem which generated this result transmitted reference range : 10*3/?L. The reference range was not used to interpret this result as normal/abnormal . GRAN MAT (NEUT) % 58.1 % (test code = 770-8) IMM GRAN % (test code 0.50 % = 3908350763) LYMPH % (test code = 31.0 % 736-9) MONO % (test code = 9.0 % 5905-5) EOS % (test code = 1.0 % 713-8) BASO % (test code = 0.4 % 706-2) GRAN MAT x10^3(ANC) 5.82 10*3/uL 1.99-6.95 (test code = 5979878132) IMM GRAN x10^3 (test 0.05 10*3/uL 0.00-0.06 code = 2215250278) LYMPH x10^3 (test code 3.11 10*3/uL 1.09-3.23 = 731-0) MONO x10^3 (test code 0.90 10*3/uL 0.36-1.02 = 742-7) EOS x10^3 (test code = 0.10 10*3/uL 0.06-0.53 711-2) BASO x10^3 (test code 0.04 10*3/uL 0.01-0.09 = 704-7) Lab Interpretation Abnormal (test code = 20341-9) [facility] Test Item Value Reference Range Interpretation Comments LIPASE (test code = 9710351658) 795 U/L 0-220 H Lab Interpretation (test code = Abnormal 88558-4) [facility] 08:54:39 Test Item Value Reference Range Interpretation Comments NA (test code = 137 mmol/L 135-145 2901360338) K (test code = 4.6 mmol/L 3.5-5.0 0051768483) CL (test code = 100 mmol/L 98-108 9306709693) CO2 TOTAL (test code = 26 mmol/L 23-31 1339103607) AGAP (test code = 2-16 2944896700) BUN (test code = 13 mg/dL 7-23 3326104352) GLUCOSE (test code = 98 mg/dL 70-110 0291500351) CREATININE (test code = 0.81 mg/dL 0.60-1.25 7020098313) TOTAL BILI (test code = 0.5 mg/dL 0.1-1.4 3865687288) CALCIUM (test code = 9.3 mg/dL 8.6-10.6 7534100969) T PROTEIN (test code = 8.1 g/dL 6.3-8.2 1725976798) ALBUMIN (test code = 5.0 g/dL 3.5-5.0 6095207543) ALK PHOS (test code = 48 U/L 34-122 8896877654) ALTv (test code = 29 U/L 5-50 2-6) AST(SGOT) (test code = 43 U/L 13-40 H 4407018937) eGFR (test code = mL/min/1.73m2 5404496495) GIGI (test code = GIGI) Association of Glomerular Filtration Rate (GFR) and Staging of Kidney Disease* + --+ --+ ------+| GFR (mL/min/1.73 m2) ?| With Kidney Damage ?| ?Without Kidney Damage+ --------+ --------+ +| ?>90 ?| ?Stage one ?| ? Normal ?+ ---+ ---+ -------+| ?60-89 ?| ?Stage two ?| ? Decreased GFR ? + --+ --+ ------+| ?30-59 ?| ?Stage three ?| ? Stage three ? + --+ --+ ------+| ?15-29 ?| ?Stage four ? | ? Stage four ?+ ---+ ---+ -------+| ?<15 (or dialysis) ? ?| ?Stage five ? | ? Stage five ?+ ---+ ---+ -------+ *Each stage assumes the associated GFR level has been in effect for at least three months. ?Stages 1 to 5, with or without kidney disease, indicate chronic kidney disease. Notes: Determination of stages one and two (with eGFR >59mL/min/1.73 m2) requires estimation of kidney damage for at least three months as defined by structural or functional abnormalities of the kidney, manifested by either:Pathological abnormalities or Markers of kidney damage (including abnormalities in the composition of the blood or urine or abnormalities in imaging tests). Lab Interpretation Abnormal (test code = 94708-2) [facility] (ALB,T.PRO,BILI T,BU/BC,ALT,AST,ALK PHOS)2021-12-03 08:54:39 Test Item Value Reference Range Interpretation Comments TOTAL BILI (test code = 1911668620) 0.5 mg/dL 0.1-1.1 BILI UNCON (test code = 6353258079) 0.4 mg/dL 0.1-1.1 BILI CONJ (test code = 0273338657) 0.0 mg/dL 0.0-0.3 T PROTEIN (test code = 2968327605) 8.1 g/dL 6.3-8.2 ALBUMIN (test code = 0380973808) 5.0 g/dL 3.5-5.0 ALK PHOS (test code = 1059633881) 48 U/L 34-122 ALTv (test code = 1742-6) 29 U/L 5-50 AST(SGOT) (test code = 5173260482) 43 U/L 13-40 H Lab Interpretation (test code = Abnormal 49458-5) [facility] 08:53:38 Test Item Value Reference Range Interpretation Comments JOJO (test code = 5113619002) 148 U/L 35-110 H Lab Interpretation (test code = Abnormal 81481-1) [facility] [id number] 08:38:14 Test Item Value Reference Range Interpretation Comments WBC (test code = See_Comment [Automated 2886-2) message] The sy stem which generated this result transmitted reference range : 4.20 - 10.70 10*3/?L. The reference range was not used to interpret this result as normal/abnormal . RBC (test code = See_Comment [Automated 693-8) message] The sy stem which generated this result transmitted reference range : 4.26 - 5.52 10*6/?L. The reference range was not used to interpret this result as normal/abnormal . HGB (test code = 14.8 g/dL 12.2-16.4 718-7) HCT (test code = 42.9 % 38.4-49.3 4544-3) MCV (test code = 96.2 fL 81.7-95.6 H 787-2) MCH (test code = 33.2 pg 26.1-32.7 H 785-6) MCHC (test code = 34.5 g/dL 31.2-35.0 786-4) RDW-SD (test code = 43.9 fL 38.5-51.6 43970-0) RDW-CV (test code = 12.3 % 12.1-15.4 788-0) PLT (test code = See_Comment [Automated 777-3) message] The sy stem which generated this result transmitted reference range : 150 - 328 10*3/ ?L. The reference r teresa was not used to interpret this result as normal/abnormal . MPV (test code = 9.9 fL 9.8-13.0 13026-2) NRBC/100 WBC (test See_Comment [Automat ed code = 3223228624) message] The system which generated this result transmitted reference range : 0.0 - 10.0 /100 WBCs. The refer ence range was not u sed to interpret th is result as normal/abnormal . NRBC x10^3 (test code <0.01 See_Comment [Auto mated = 6576058638) message] The s ystem which generated this result transmitted reference range : 10*3/?L. The reference range was not used to interpret this result as normal/abnormal . GRAN MAT (NEUT) % 61.5 % (test code = 770-8) IMM GRAN % (test code 0.50 % = 9404922342) LYMPH % (test code = 27.6 % 736-9) MONO % (test code = 9.1 % 5905-5) EOS % (test code = 1.0 % 713-8) BASO % (test code = 0.3 % 706-2) GRAN MAT x10^3(ANC) 6.09 10*3/uL 1.99-6.95 (test code = 6210285932) IMM GRAN x10^3 (test 0.05 10*3/uL 0.00-0.06 code = 8147956569) LYMPH x10^3 (test code 2.74 10*3/uL 1.09-3.23 = 731-0) MONO x10^3 (test code 0.90 10*3/uL 0.36-1.02 = 742-7) EOS x10^3 (test code = 0.10 10*3/uL 0.06-0.53 711-2) BASO x10^3 (test code 0.03 10*3/uL 0.01-0.09 = 704-7) Lab Interpretation Abnormal (test code = 02805-3) [facility]"
[2023-02-03] MEDS ORDERED: ACETAMINOPHEN 500 MG TAB ONE ×2 (15:00→20:07)
[2023-02-03 15:08] LABS: Absolute Lymphocytes (CBC) 2.8 K/uL (0.7-4.9); Hematocrit 42.6 % (39.6-49.0); Lymphocytes % 33.9 % (15.3-44.8); MCV 95.6 fL (80-100); MPV 7.8 fL (7.6-11.3); RBC Red Blood Cell Count 4.46 M/uL (4.33-5.43)
[2023-02-03 15:09] LABS: Protime INR 1.01
[2023-02-03 15:20] LABS: Potassium 3.1 mEq/L (3.5-5.1)
--- NOTE | 2023-02-03 19:47 | RAD REPORT ---
EXAM DESCRIPTION: RAD - Hand Right 3 View - 02/03/2023 7:21 pm CLINICAL HISTORY: SNAKE BITE COMPARISON: Hand Right 3 View dated 02/17/2014 TECHNIQUE: Right hand, 3 views. FINDINGS: No fracture is identified. There is no dislocation or periosteal reaction noted. No foreign body or other soft tissue abnormalit y. IMPRESSION: No acute osseus abnormality of the right hand.
[2023-02-03] MEDS ORDERED: POTASSIUM 25 MEQ EFFERV TAB ONE (20:43)
[2023-02-03 20:47] LABS: Absolute Lymphocytes (CBC) 2.8 K/uL (0.7-4.9); Hematocrit 41.2 % (39.6-49.0); Lymphocytes % 33.7 % (15.3-44.8); MCV 95.7 fL (80-100); MPV 7.7 fL (7.6-11.3); RBC Red Blood Cell Count 4.31 M/uL (4.33-5.43)
[2023-02-03 20:48] LABS: Protime INR 1.05
--- NOTE | 2023-02-03 21:27 | ER ---
Nurse's Notes [facility] Name: Michael Odom Age: 32 yrs Sex: Male : 1990 Arrival Date: 02/03/2023 Time: 14:24 Bed 2 Private MD: Diagnosis: Bitten by venomous snake Presentation: 02/03 14:30 Chief complaint: Patient states: I got bit by a "cottonmouth" I think. He was about ko1 8-10 inches long. 14:30 Coronavirus screen: At this time, the client does not indicate any symptoms associated ko1 with coronavirus-19. Ebola Screen: No symptoms or risks identified at this time. Initial Sepsis Screen: Does the patient meet any 2 criteria? No. Patient's initial sepsis screen is negative. Does the patient have a suspected source of infection? No. Patient's initial sepsis screen is negative. Risk Assessment: Do you want to hurt yourself or someone else? Patient reports no desire to harm self or others. Onset of symptoms was February 03, 2023 at 14:00. 14:30 Method Of Arrival: Ambulatory ko1 14:30 Acuity: WILBER 2 ko1 Triage Assessment: 15:22 Bite description: bite sustained to palmar aspect of middle phalanx of right index ko1 finger by a snake, animal information: vaccination(s) is not applicable was sustained less than 30 minutes ago. General: Appears in no apparent distress. comfortable, Behavior is calm, cooperative, appropriate for age. Pain: Complains of pain in right hand. Historical: - Allergies: 15:22 No Known Allergies; ko1 - Home Meds: 15:22 None [Active]; ko1 - PMHx: 15:22 None; ko1 - Immunization history:: Adult Immunizations up to date, Last tetanus immunization: September 2021. - Social history:: Smoking status: Patient denies any tobacco usage or history of. Screenin:30 [facility] ED Fall Risk Assessment (Adult) History of falling in the last 3 months, ko1 including since admission No falls in past 3 months (0 pts) Confusion or Disorientation No (0 pts) Intoxicated or Sedated No (0 pts) Impaired Gait No (0 pts) Mobility Assist Device Used No (0 pt) Altered Elimination No (0 pt) Score/Fall Risk Level 0 - 2 = Low Risk Oriented to surroundings, Maintained a safe environment, Educated pt \\T\\ family on fall prevention, incl call for assistance when getting out of bed, Assessed \\T\\ reinforced patient's understanding of fall precautions, Provided non-skid footwear, Hourly rounding (assess needs \\T\\ fall precautionary measures) done, Used ambulatory aids as needed (educated on \\T\\ assisted with), Used gait belt as appropriate. Abuse screen: Denies threats or abuse. Denies injuries from another. Nutritional screening: No deficits noted. Tuberculosis screening: No symptoms or risk factors identified. Assessment: 14:30 Neuro: No deficits noted. Cardiovascular: No deficits noted. Respiratory: No deficits ko1 noted. GI: No deficits noted. : No deficits noted. EENT: No deficits noted. Derm: Skin is intact, Skin is pink, warm \\T\\ dry. Musculoskeletal: No deficits noted. Injury Description: Bite. 14:45 Reassessment: Marked area that was red and swollen on finger with blue sharpie, ko1 elevated hand above heart level with pillows and gave instructions to patient to leave hand elevated. Spoke with poison control, instructions received. 15:00 Reassessment: no changes in patient condition. ko1 15:15 Reassessment: no changes, re-educated patient regarding importance of keeping hand ko1 elevated. 15:30 Reassessment: no changes, redness and edema remain unchanged. ko1 16:00 Reassessment: Patient appears in no apparent distress at this time. No changes from ko1 previously documented assessment. 17:00 Reassessment: Patient appears in no apparent distress at this time. No changes from ko1 previously documented assessment. Patient and/or family updated on plan of care and expected duration. Pain level reassessed. 18:00 Reassessment: Patient appears in no apparent distress at this time. No changes from ko1 previously documented assessment. Patient and/or family updated on plan of care and expected duration. Pain level reassessed. 19:00 Reassessment: Patient appears in no apparent distress at this time. Patient and/or jb4 family updated on plan of care and expected duration. Pain level reassessed. Patient is alert, oriented x 3, equal unlabored respirations, skin warm/dry/pink. 19:55 Reassessment: Patient appears in no apparent distress at this time. Patient and/or jb4 family updated on plan of care and expected duration. Pain level reassessed. Patient is alert, oriented x 3, equal unlabored respirations, skin warm/dry/pink. 21:10 Reassessment: Patient appears in no apparent distress at this time. Patient and/or jb4 family updated on plan of care and expected duration. Pain level reassessed. Patient is alert, oriented x 3, equal unlabored respirations, skin warm/dry/pink. Vital Signs: 14:30 BP 138 / 86; Pulse 64; Resp 18; Temp 97.9; Pulse Ox 98% on R/A; ko1 14:30 BP 129 / 91; Pulse 70; Resp 16; Pulse Ox 98% ; ko1 15:00 BP 129 / 91; Pulse 70; Resp 16; Pulse Ox 98% ; ko1 16:00 BP 135 / 85; Pulse 70; Resp 14; Pulse Ox 98% ; ko1 17:00 BP 131 / 91; Pulse 74; Resp 16; Pulse Ox 99% on R/A; ko1 18:00 BP 135 / 92; Pulse 81; Resp 16; Pulse Ox 100% ; ko1 19:55 BP 142 / 91; Pulse 66; Resp 16; Pulse Ox 99% on R/A; jb4 21:02 BP 134 / 98; Pulse 62; Resp 16; Temp 98.9(O); Pulse Ox 98% ; rv Elizabeth Coma Score: 21:04 Eye Response: spontaneous(4). Motor Response: obeys commands(6). Verbal Response: rv oriented(5). Total: 15. ED Course: 14:25 Patient arrived in ED. ts1 14:27 Keith Barton DO is Attending Physician. ms3 14:30 Minerva Locke, JAYE is Primary Nurse. ko1 14:30 Patient has correct armband on for positive identification. Bed in low position. Call ko1 light in reach. Side rails up X 1. Client placed on continuous cardiac and pulse oximetry monitoring. NIBP monitoring applied. autocad electrical designer on. Poison control, spoke with Allegra. Door closed. Noise minimized. Pillow given. elevated hand. 14:44 Inserted saline lock: 20 gauge in left forearm, using aseptic technique. Blood bp collected. 15:22 Triage completed. ko1 15:22 Arm band placed on left wrist. Patient placed in an exam room, on a stretcher, on pulse ko1 oximetry, Patient notified of wait time. 19:23 Hand Right 3 View In Process Unspecified. EDMS 20:07 Attending Physician role handed off by Keith Barton DO ms3 20:07 Ramos Meyers MD is Attending Physician. ms3 20:31 Fibrinogen Sent. jb4 20:31 PT-INR Sent. jb4 20:31 CBC with Diff Sent. jb4 21:26 Yogi Mejia DO is Referral Physician. [facility] 21:31 No provider procedures requiring assistance completed. IV discontinued, intact, rv bleeding controlled, No redness/swelling at site. Pressure dressing applied. Administered Medications: 14:55 Drug: Acetaminophen PO 1000 mg Route: PO; ko1 17:14 Follow up: Response: No adverse reaction; Pain is decreased ko1 20:01 Drug: Acetaminophen PO 1000 mg Route: PO; jb4 20:48 Drug: Potassium PO Effervescent Tablet 25 mEq Route: PO; jb4 Medication: 16:00 VIS not applicable for this client. ko1 Outcome: 21:27 Discharge ordered by . [facility] 21:32 Discharged to home ambulatory, with family. rv 21:32 Condition: good 21:32 Discharge instructions given to patient, Instructed on discharge instructions, follow up and referral plans. no driving heavy equipment, Demonstrated understanding of instructions, follow-up care, medications, Prescriptions given X 2. 21:32 Patient left the ED. rv Signatures: Dispatcher [employer] EDDE Ramos Meyers MD MD cha Bryson, James, RN RN jb4 Peltier, Brian, RN Oren Valdez RN RN rv Keith Barton DO DO ms3 Minerva Locke RN RN ko1 Charlotte Diaz PAS PAS ts1 Corrections: (The following items were deleted from the chart) 15:30 15:22 Immunization history: Adult Immunizations unknown, ko1 ko1 19:20 17:45 In radiology for Hand Right 3 View+RAD.RAD.[email or web address]. EDDE EDMS
--- NOTE | 2023-02-03 21:28 | EDPHYS ---
Physician Documentation [facility] Name: Michael Odom Age: 32 yrs Sex: Male : 1990 Arrival Date: 02/03/2023 Time: 14:24 Bed 2 Private MD: ED Physician Ramos Meyers HPI: 02/03 15:08 This 32 yrs old Male presents to ER via Unassigned with complaints of Snake bite. ms3 15:08 32-year-old male with no past medical history presents 20 minutes after being bitten by ms3 a snake. Patient states he believes the snake was a [place]mouth. Patient states his pain is currently a 5/10 described as throbbing in his right index finger. Patient denies alleviating or inciting factors.. Historical: - Allergies: 15:22 No Known Allergies; ko1 - Home Meds: 15:22 None [Active]; ko1 - PMHx: 15:22 None; ko1 - Immunization history:: Adult Immunizations up to date, Last tetanus immunization: September 2021. - Social history:: Smoking status: Patient denies any tobacco usage or history of. ROS: 15:08 Constitutional: Negative for fever, and chills. Neck: Negative for injury, pain, and ms3 swelling, Cardiovascular: Negative for chest pain, and palpitations. Respiratory: Negative for shortness of breath, cough, wheezing, and pleuritic chest pain, Abdomen/GI: Negative for abdominal pain, nausea, vomiting, diarrhea, and constipation. 15:08 Skin: Positive for puncture wound right index finger. 15:08 All other systems are negative. Exam: 15:08 Constitutional: This is a well developed, well nourished patient who is awake, alert, ms3 and in no acute distress. Head/Face: Normocephalic, atraumatic. Neck: Trachea midline, no cervical lymphadenopathy. Supple, full range of motion without nuchal rigidity, or vertebral point tenderness. No Meningismus. Chest/axilla: Normal chest wall appearance and motion. Nontender with no deformity. Cardiovascular: Regular rate and rhythm with a normal S1 and S2. No gallops, murmurs, or rubs. Normal PMI, no JVD. No pulse deficits. Respiratory: Lungs have equal breath sounds bilaterally, clear to auscultation and percussion. No rales, rhonchi or wheezes noted. No increased work of breathing, no retractions or nasal flaring. Abdomen/GI: Soft, non-tender, with normal bowel sounds. No distension or tympany. No guarding or rebound. No evidence of tenderness throughout. 15:08 Skin: puncture wound with mild swelling of right index middle phalanx. Vital Signs: 14:30 BP 138 / 86; Pulse 64; Resp 18; Temp 97.9; Pulse Ox 98% on R/A; ko1 14:30 BP 129 / 91; Pulse 70; Resp 16; Pulse Ox 98% ; ko1 15:00 BP 129 / 91; Pulse 70; Resp 16; Pulse Ox 98% ; ko1 16:00 BP 135 / 85; Pulse 70; Resp 14; Pulse Ox 98% ; ko1 17:00 BP 131 / 91; Pulse 74; Resp 16; Pulse Ox 99% on R/A; ko1 18:00 BP 135 / 92; Pulse 81; Resp 16; Pulse Ox 100% ; ko1 19:55 BP 142 / 91; Pulse 66; Resp 16; Pulse Ox 99% on R/A; jb4 21:02 BP 134 / 98; Pulse 62; Resp 16; Temp 98.9(O); Pulse Ox 98% ; rv Elizabeth Coma Score: 21:04 Eye Response: spontaneous(4). Motor Response: obeys commands(6). Verbal Response: rv oriented(5). Total: 15. MDM: 14:27 Patient medically screened. ms3 15:08 Differential diagnosis: snake bite. ms3 20:07 Transition of care: After a detail discussion of the patient's case, care is ms3 transferred to Ramos Meyers MD. 02/03 14:36 Order name: CBC with Diff; Complete Time: 15:21 ms3 02/03 14:36 Order name: BMP; Complete Time: 15:21 ms3 02/03 14:36 Order name: PT-INR; Complete Time: 15:21 ms3 02/03 14:49 Order name: Fibrinogen; Complete Time: 15:21 ko1 02/03 20:18 Order name: CBC with Diff; Complete Time: 21:30 shraddha 02/03 20:18 Order name: Fibrinogen; Complete Time: 21:30 shraddha 02/03 20:18 Order name: PT-INR; Complete Time: 21:30 shraddha 02/03 19:19 Order name: Hand Right 3 View; Complete Time: 19:51 EDMS Administered Medications: 14:55 Drug: Acetaminophen PO 1000 mg Route: PO; ko1 17:14 Follow up: Response: No adverse reaction; Pain is decreased ko1 20:01 Drug: Acetaminophen PO 1000 mg Route: PO; jb4 20:48 Drug: Potassium PO Effervescent Tablet 25 mEq Route: PO; jb4 Disposition Summary: 02/03/23 21:27 Discharge Ordered Location: Home shraddha Condition: Stable shraddha Problem: new shraddha Symptoms: have improved shraddha Diagnosis - Bitten by venomous snake shraddha Followup: ms3 - With: - When: 2 - 3 days - Reason: Recheck today's complaints Discharge Instructions: - Discharge Summary Sheet [facility] Forms: - Medication Reconciliation Form shraddha - Thank You Letter shraddha - Antibiotic Education srhaddha - Prescription Opioid Use [facility] Prescriptions: - Cephalexin 500 mg Oral Capsule - take 1 capsule by ORAL route every 6 hours for 7 days; 28 capsule; Refills: 0, [facility] Product Selection Permitted - Zofran 4 mg Oral Tablet - take 1 tablet by ORAL route every 12 hours As needed; 20 tablet; Refills: 0, [facility] Product Selection Permitted Signatures: Dispatcher [employer] EDMS Ramos Meyers MD MD cha Bryson, James, RN RN jb4 Keith Barton DO DO ms3 Minerva Locke, RN RN ko1 Corrections: (The following items were deleted from the chart) 15:30 15:22 Immunization history: Adult Immunizations unknown, ko1 ko1 19:20 17:09 Hand Right 3 View+RAD.RAD.BRZ ordered. EDMS EDMS
[2023-02-03 21:49] VITALS: BP 134/98; TEMP 98.9; O2SAT 98
== END 2023-02-03 21:32 | disposition home or self-care (01) ==
LOC: ER 14:24
DX: S61.230A Puncture wound without foreign body of right index finger without damage to nail, initial encounter (principal); T63.091A Toxic effect of venom of other snake, accidental (unintentional), initial encounter
CPT/HCPCS: 36415; 80048; 85025; 85384; 85610; 99285